=== PATIENT | female | born 1985 | race Caucasian/White ===

== ENCOUNTER 2017-04-11 04:03 | Inpatient (IN) | payer BC ==
[~2017-04-11] VITALS: Ht 170.2 cm; Wt 74.0 kg
[~2017-04-11 04:03] MED LIST: CETI10CA19 PO; HYDR28.465; KETO5DRO70 BOTH EYES; OXYM30MI9; PREN1TAB77 PO
[2017-04-11] MEDS ORDERED: MAG-AL + SIM LIQUID 30 ML UDC PO PRN ×2 (04:15→13:30)
[2017-04-11] MEDS ORDERED: LIDOCAINE 1% (10mg/ml) 2ml SDV ID PRN (04:15)
[2017-04-11] MEDS ORDERED: ACETAMINOPHEN 500 MG TABLET PO PRN ×2 (04:15→13:30)
[2017-04-11] MEDS ORDERED: CALCIUM CARBONATE 500mg Chewable TAB PO PRN ×2 (04:15→13:30)
[2017-04-11 04:19] VITALS: BP 120/85; PULSE 78; RESP 16; TEMP 98.2
[2017-04-11 08:27] LABS: HCT - HEMATOCRIT 39.6 % (36-46); HGB - HEMOGLOBIN 13.2 GM/DL (12-16); MEAN CORPUSCULAR HGB 29.6 UUG (26-34); MEAN CORPUSCULAR HGB CONC(MCHC 33.3 GM/DL (31-37); MEAN CORPUSCULAR VOLUME 88.8 UM3 (80-100); MEAN PLATELET VOLUME 10.3 UM3 (9.4-12.4); RED BLOOD COUNT 4.46 M/MM3 (4.00-5.20)
[2017-04-11] MEDS: LR 1,000 ML IV PRN ×2 (08:28→11:54)
[2017-04-11] MEDS ORDERED: AMPICILLIN 2 G in NORMAL SALINE 100 ML IV ONE (08:30)
[2017-04-11] MEDS ORDERED: D5LR 1,000 ML IV PRN (08:30)
[2017-04-11] MEDS ORDERED: OXYTOCIN 30 UNIT in D5LR 500 ML ONE (08:30)
[2017-04-11] MEDS ORDERED: AMPICILLIN 1 G in NORMAL SALINE 100 ML IV SCH (12:30)
[2017-04-11] MEDS ORDERED: OXYTOCIN 30 UNIT in D5LR 500 ML IV ONE (13:21)
[2017-04-11] MEDS ORDERED: OXYTOCIN 30 UNIT in D5W 500 ML IV ONE (13:21)
[2017-04-11] MEDS ORDERED: HYDROCORTISONE 2.5% CREAM 30 GM RECTALLY PRN (13:30)
[2017-04-11] MEDS ORDERED: IBUPROFEN 800 MG TABLET PO PRN (13:30)
[2017-04-11] MEDS ORDERED: PHENYLEPHRINE RECTAL SUPPOSITORY RECTALLY PRN (13:30)
[2017-04-11] MEDS ORDERED: HYDROCODONE/APAP 5 mg/325 mg TABLET PO PRN (13:30)
[2017-04-11] MEDS ORDERED: DiphenhydrAMINE 25 MG CAPSULE PO PRN (13:30)
[2017-04-11] MEDS ORDERED: MILK OF MAGNESIA 30 ML SUSP PO PRN (13:30)
--- NOTE | 2017-04-11 15:30 | NUR ---
Progress Note Pt ambulated to bathroom with RN supervision and denied dizziness. Pt voided w/o difficulty. RN educated pt about pericare and pad changes. Pt verbalized understanding and performed self pericare. RN assisted with skin care. Pad and ice pack changed with tucks pads and benzo spray applied. Linens changed. Will continue to monitor per plan of care.
[2017-04-11 16:18] VITALS: BP 105/57; PULSE 85; RESP 20; TEMP 98; O2SAT 98
--- NOTE | 2017-04-11 17:54 | PNPDOC ---
Prog Note 04/11/17 doing well. no c/o. vss af KWAME TEMPLE MD April 11, 2017 17:54
--- NOTE | 2017-04-11 18:25 | LDNF ---
DATE OF DELIVERY: 04/11/2017 DIAGNOSES 1. 31-year-old white female, G2, P1 at 39.2 weeks gestational age. 2. Pitocin induction of labor for decreased fundal height at term. 3. Artificial rupture of membranes. 4. Spontaneous vaginal delivery. 5. GBS prophylaxis. 6. Shoulder cord. 7. Second-degree midline episiotomy, repaired. 8. Female , 8/9 Apgars, 2790 g (6 pounds 2.4 ounces) (Lucie Kim). DESCRIPTION This is a patient of mine who was scheduled for an induction today. She came in around 4:00 in the morning because she thought her water was broken but AmniSure was negative. We kept her since she was scheduled for an induction. We let her sleep for a while and then began the induction around 8:00 or 08:30 a.m. Pitocin reached a maximum of 20 milliunits/ minute. Artificial rupture of membranes occurred at 11:20 a.m. She was 2.5 cm at that time. She had a spontaneous vaginal delivery at 12:58 p.m. She went without any pain medicine. Previously in the office we had discussed the fact that she pushed for 50 minutes the last time in an almost position and she didn't want to do that this time. She wanted to go ahead and have the episiotomy and deliver rapidly. I waited to see if she would deliver without the episiotomy and she had started tearing on the inside at the episiotomy site so I went ahead and performed it in a position and we delivered with the next contraction. The infant was bulb suctioned after delivery of the head and then again after delivery of the body. There was a tight cord over the left shoulder and it was reduced. Cord was allowed to drain into baby for about a minute and a half and then it was doubly clamped and cut and the infant was placed in the isolette per the patient's request. Placenta delivered spontaneously. Perineum had a second-degree midline episiotomy that was repaired with 2-0 Vicryl after anesthetizing with 1% lidocaine. At time of dictation mother and are doing well. Patient received two doses of ampicillin for GBS prophylaxis. The patient's fundal height was measuring 4.5 cm below at time of induction. Maternal blood type is A+ and rubella is immune. MTDD
[2017-04-11 20:00] VITALS: BP 129/68; PULSE 67; RESP 18; TEMP 97.6; O2SAT 97
[2017-04-11 23:41] VITALS: BP 126/79; PULSE 68; RESP 18; TEMP 98; O2SAT 99
--- NOTE | 2017-04-12 01:36 | NUR ---
Chart Check 24 hour chart check completed
--- NOTE | 2017-04-12 01:36 | NUR ---
Shift Summary Pt's VS stable. Fundus firm, small lochia, and voiding w/o difficulty. Pt tolerating po fluids and regular diet. IVSL DC. Pt performing cares for self and baby with help of at bedside. Pain controlled with pt's Home Medication, Advil. Pt up ad bharat in room. Pt attentive to needs and bonding appropriately. Call cho in reach. Will continue to monitor per plan of care.
[2017-04-12 07:00] VITALS: BP 117/78; PULSE 71; RESP 18; TEMP 97.8; O2SAT 96
--- NOTE | 2017-04-12 08:08 | PNPDOC ---
[facility] Prog Note 04/12/17 doing well vss af disc delivery and rehashed what went on q&a-krb KWAME TEMPLE MD April 12, 2017 08:08
[2017-04-12] MEDS ORDERED: DOCUSATE CALCIUM 240 MG CAPSULE PO SCH (09:00)
--- NOTE | 2017-04-12 12:04 | NUR ---
Patient has ibuprofen at bedside, okay per Dr. Baum. Per patient has not taken since 12 am on previous shift. Pain well controlled. Patient took own stool softener at 1200 per patient's report.
--- NOTE | 2017-04-12 15:39 | NUR ---
Shift Summary Patient denied pain this shift. Ibuprofen at bedside, instructed to notify nurse upon use. Assessment charted, no changes.
[2017-04-12 16:10] VITALS: BP 130/81; PULSE 63; RESP 16; TEMP 97.6; O2SAT 97
[2017-04-12 22:26] VITALS: BP 118/78; PULSE 62; RESP 18; TEMP 97.9; O2SAT 98
== END 2017-04-12 22:40 | disposition home or self-care (01) | DRG 775 ==
LOC: MC 04:03
PROVIDERS: ADMIT Obstetrics & Gynecology; ATTEND Obstetrics & Gynecology
PROC: 10E0XZZ Delivery of Products of Conception, External Approach (ICD-10-PCS; principal; 2017-04-11)
PROC: 10907ZC Drainage of Amniotic Fluid, Therapeutic from Products of Conception, Via Natural or Artificial Opening (ICD-10-PCS; 2017-04-11)
PROC: 3E033VJ Introduction of Other Hormone into Peripheral Vein, Percutaneous Approach (ICD-10-PCS; 2017-04-11)
PROC: 0W8NXZZ Division of Female Perineum, External Approach (ICD-10-PCS; 2017-04-11)
DX: O75.89 Other specified complications of labor and delivery (principal); O69.2XX0 Labor and delivery complicated by other cord entanglement, with compression, not applicable or unspecified; O70.1 Second degree perineal laceration during delivery; Z3A.39 39 weeks gestation of pregnancy; Z37.0 Single live birth
CPT/HCPCS: 84112; 85027